=== PATIENT | male | born 1940 | race Caucasian/White ===

== ENCOUNTER 2018-04-21 11:31 | Observation (INO) | payer MEDICARE, OTHER ==
[2018-04-14 08:29] LABS: ABSOLUTE EOSINOPHILS 0.1 thou/uL (0.0-0.7); ABSOLUTE LYMPHOCYTES 1.2 thou/uL (0.8-5.3); ABSOLUTE MONOCYTES 0.7 thou/uL (0.0-1.2); ABSOLUTE NEUTROPHILS 3.2 thou/uL (1.6-8.1); BASOPHILS 0.9 %; EOSINOPHILS 2.7 %; HEMATOCRIT 46.4 % (42.0-52.0); HEMOGLOBIN 15.5 gm/dL (14.0-18.0); LYMPHOCYTES 22.6 %; MCH 31.3 pg (26.0-34.0); MCHC 33.5 g/dL (28.0-37.0); MCV 93.5 fL (80.0-100.0); MONOCYTES 12.7 %; MPV 7.1 fl. (7.2-11.1); NUCLEATED RBCS 0 /100WBC; PLATELET COUNT* 272 thou/uL (150-400); POLYS 61.1 %; RBC 4.96 mil/uL (4.50-6.00); RDW-CV 13.4 % (10.5-14.5); WBC 5.2 thou/uL (4.0-11.0)
[2018-04-14 08:40] LABS: ALBUMIN 3.5 g/dL (3.4-5.0); CALCIUM 8.8 mg/dL (8.5-10.1); POTASSIUM 4.3 mmol/L (3.5-5.1); TOTAL BILIRUBIN 0.5 mg/dL (<0.1-1.0); TOTAL PROTEIN 6.9 g/dL (6.4-8.2)
[2018-04-14 08:50] LABS: APTT 26.1 Seconds (25.0-31.3); PROTIME 10.5 Seconds (9.20-11.50)
[2018-04-14 10:37] LABS: ESR (SEDRATE) 10 mm/hr (0-20)
[~2018-04-21] VITALS: Ht 175.3 cm; Wt 113.4 kg
--- NOTE | ~2018-04-21 | OP ---
[address] [address] OPERATIVE REPORT Name: STACIETALITA Marks Room: [address] M.R.#: [id number] Admission: 04/21/18 Attend Phys: Jose Pendleton Discharge: Date of : 44 Report #: [id number] THIS REPORT FOR: //name// CC: Kieran Trujillo DICTATED BY: Kj Fields DO DATE OF SERVICE: 04/21/2018 PREOPERATIVE DIAGNOSIS: Right shoulder osteoarthritis. POSTOPERATIVE DIAGNOSIS: Right shoulder osteoarthritis. SURGEON: Nitesh Segovia DO. COMMISSIONED SALES ASSOCIATE: 1. Kj Fields DO. 2. Perez Ascencio DO OPERATION PERFORMED: Right reverse shoulder arthroplasty. ANESTHESIA: General interscalene nerve block. ESTIMATED BLOOD LOSS: 75 mL. SPECIMENS: None. COMPLICATIONS: None. ANTIBIOTICS: Ancef 2 grams IV. CONDITION OF THE PATIENT: Stable to PACU. ORTHOPEDIC IMPLANTS: 1. Biomet comprehensive reverse shoulder glenosphere baseplate, 25 mm. 2. Biomet comprehensive reverse shoulder glenosphere, 36 mm. 3. Biomet size 13 mini humeral stem porous plasma coated. 4. Nonlocking screws x 3 of appropriate length. 5. Central screw x 1, 25 mm. 6. Biomet comprehensive humeral tray with locking ring. 7. Biomet humeral bearing, 44 mm +3. INDICATION FOR PROCEDURE: The patient is a 77-year-old male who has severe osteoarthritis of the right shoulder. He has failed conservative measures, has severe debilitation and adhesive capsulitis of the shoulder with very limited [facility] [address] [facility] [place] [address] OPERATIVE REPORT Name: SHERLYN QUINONESJose Marks Room: [address] MRitaR.#: [id number] Admission: 04/21/18 Attend Phys: Jose Pendleton Discharge: Date of : 44 Report #: [id number] range of motion, in quite a bit of pain. Given the advancing osteoarthritis on x-ray and debilitating conditions, it was recommended he may be a candidate for a total shoulder versus a reverse total shoulder arthroplasty. All risks, benefits, complications, indications, alternatives reviewed with the patient and wished to proceed. DESCRIPTION OF PROCEDURE: The patient was brought to the operative suite after having interscalene nerve block preoperatively. He has given the benefits of general anesthesia. He was then placed in the beach chair position. The right upper extremity was then sterilely prepped and draped in standard fashion. Timeout was taken to ensure correct patient, procedure, operative site. Antibiotics were given. Everybody in the room was in agreement. A 10 blade scalpel was used to make a skin incision over the deltopectoral interval. Subcutaneous dissection was taken with the Bovie electrocautery. Metzenbaum scissors were used to find the deltopectoral interval and protect the cephalic vein laterally. At this point, the clavipectoral fascia was excised, and the conjoined tendon was retracted medially. We then went ahead in the peeled back technique of subscapularis tendon. At this point in time, we did the extensive osteophytosis of the inferior humeral neck and overall immobility of the shoulder and areas of poor cuff tissue. We went ahead and proceeded with reverse total shoulder arthroplasty. We completely peeled back the subscapularis at this time, tenotomized the biceps tendon and dissected to the internal rotator interval to the biceps insertion on the superior glenoid rim. At this point, the shoulder was externally rotated. A subperiosteal dissection was taken off the inferior neck of the humerus and the superior margin of the pectoralis was released. At this point in time, intramedullary canal was found and sequentially reamed up to a 13. We then made a 30-degree retroversion cut with appropriate amount of resection. Once this was made with the saw, we then broached up to a size 13, and we placed a final size 13 mm plasma coated stem. We then brought to attention the glenoid, placed Fakuda retractor and the anterior glenoid retractor. We then circled labrum as well as capsular tissue. Once we had good glenoid exposure, we then placed our central peg in 10 degrees of inferior tilt. We eccentrically reamed just slightly to allow position for a 25 mm porous coated baseplate. This was malleted in position and then a central 25 mm screw was used to secure the baseplate to bone. We then placed three nonlocking screws superiorly, inferiorly and anteriorly to appropriate length. Once these were placed, we then placed our 36 mm final glenosphere. Kramer taper was engaged, was malleted in place. We trialed with a +3 mm polyethylene insert and a humeral tray, had excellent stability through range of motion with full range of motion. We elected to pull the final implants, engage the Kramer taper in the final implants and reduced the shoulder, had excellent range of motion and stability. We then irrigated the wound, closed the subcutaneous with 2-0 Monocryl, followed by running 3-[address] Stratafix [address] [address] OPERATIVE REPORT Name: TALITA QUINONES Room: [address] Bandar#: [id number] Admission: 04/21/18 Attend Phys: Jose Pendleton Discharge: Date of : 44 Report #: [id number] Exofin glue. The patient awoke from anesthesia, placed in a slingshot immobilizer and brought to PACU in stable condition. By: [id number] Cecily Segovia DO /erika
[~2018-04-21 11:31] MED LIST: NATURE-THROID65 MG PO
[2018-04-21 12:55] VITALS: BP 158/72
[2018-04-21 18:45] VITALS: BP 146/64
[2018-04-21 20:00] VITALS: BP 137/76
[2018-04-22] VITALS: BP 121/71
[2018-04-22 04:00] VITALS: BP 106/58
[2018-04-22 05:57] LABS: HEMATOCRIT 41.5 % (42.0-52.0); HEMOGLOBIN 13.9 gm/dL (14.0-18.0)
[2018-04-22 08:30] VITALS: BP 117/65
[2018-04-22] MEDS ORDERED: ELIQUIS2.5 MG PO (12:08)
[2018-04-22] MEDS ORDERED: OXYCODONE HCL 55 MG PO (12:08)
[2018-04-22 12:09] VITALS: BP 106/58
[2018-04-22] MEDS ORDERED: ASPIRIN325 PO (12:25)
[2018-04-22 21:52] VITALS: BP 106/58
== END 2018-04-22 14:30 | disposition home or self-care (01) ==
LOC: M.SUR → M.TBA 16:18 → M.ORTHSURG 16:18
PROVIDERS: Orthopaedic Surgery; ADMIT Internal Medicine
DX: M19.011 Primary osteoarthritis, right shoulder (principal); E03.9 Hypothyroidism, unspecified; R52 Pain, unspecified; Z79.899 Other long term (current) drug therapy